=== PATIENT | male | born 1950 | race Caucasian/White ===

== ENCOUNTER 2020-02-23 03:08 | Outpatient (CLI) | payer MEDICARE, SELFPAY ==
[2020-02-23 18:16] LABS: SARS-CoV-2 RNA PCR Negative
== END 2020-02-23 03:09 | disposition home or self-care (01) ==
LOC: ANHCOVIDDT 03:08
PROVIDERS: PCP Internal Medicine; Visit Provider Internal Medicine Gastroenterology
DX: Z01.812 Encounter for preprocedural laboratory examination (principal); Z20.828 Contact with and (suspected) exposure to other viral communicable diseases
CPT/HCPCS: 87635; C9803; U0003

== ENCOUNTER 2020-02-25 00:14 | Day surgery (SDC) | payer MEDICARE, SELFPAY ==
[2020-02-18 14:04] VITALS: BMI 36.8
[2020-02-25 06:51] VITALS: BP 150/79; PULSE 81; RESP 18; TEMP 36.9; O2SAT 98; BMI 36.2
[2020-02-25] MEDS: LACTATED RINGERS 1,000 ML 150 ML IV CONT (07:01)
[2020-02-25 07:07] LABS: Glucose Point of Care 106 (65-105)
--- NOTE | 2020-02-25 07:27 | WPDANESEPPF ---
Anes - Initial Pre Proc Eval Procedure: Operation Date: 02/25/20 08:00 Proposed Procedures p Colonoscopy - Jorge Alberto Hui MD Date/Time: 02/25/20 07:27 Surgeon: Jorge Alberto Hui MD Pre Op Diagnosis: Occult GI Bleed Patient Data Age: 69 Gender: M Height: 5 ft 11 in Weight: 117.8 kg Last Vital Signs Temp 98.4 F 02/25/20 06:51 Pulse 81 02/25/20 06:51 Resp 18 02/25/20 06:51 BP 150/79 H 02/25/20 06:51 Pulse Ox 98 02/25/20 06:51 Allergies Allergy/AdvReac Type Severity Reaction Status Date / Time No Known Allergies Allergy Verified 02/25/20 06:50 Home Medications Medication Instructions Recorded Confirmed Type insulin detemir U-100 100 unit/mL 40 unit SUB-Q DAILY #90 ml 06/24/19 02/18/20 Rx (3 mL) subcutaneous pen exenatide microspheres 2 mg/0.65 2 mg SUB-Q WEEKLY #4 each 07/09/19 02/18/20 Rx mL subcutaneous pen injector insulin aspart U-100 100 unit/mL 16 unit SUB-Q QACLUNCH #45 ml 08/21/19 02/18/20 Rx (3 mL) subcutaneous pen amlodipine 10 mg tablet 10 mg PO DAILY #90 tablet 08/25/19 02/18/20 Rx atorvastatin 20 mg tablet 20 mg PO DAILY #90 tablet 12/07/19 02/18/20 Rx carvedilol 25 mg tablet 25 mg PO BID #60 tablet 02/10/20 02/18/20 Rx allopurinol 100 mg PO DAILY 02/18/20 02/18/20 History aspirin [Aspirin Low Dose] 81 mg PO DAILY 02/18/20 02/18/20 History calcitriol 0.25 mcg PO 3XW 02/18/20 02/18/20 History bumetanide 2 mg tablet 2 mg PO DAILY #90 tablet 02/19/20 Rx Laboratory Tests 02/25/20 07:05 POC Capillary Glucose 106 mg/dl mg/dl (65-105) Patient hx anesthesia problems: none Family hx anesthesia problems: none PMFSH Past Medical History Medical History (Updated 02/25/20 @ 07:27 by Alirio Jones MD) Hypertensive heart disease with congestive heart failure and chronic kidney disease Mixed hyperlipidemia 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, with long-term current use of insulin Family History Family History (Updated 11/13/12 @ 11:52 by DOCTOR UNKNOWN) Other Diabetes mellitus Family history of coronary artery disease Social History Social History Smoking status: Never smoker Second hand tobacco smoke exposure: No Alcohol intake: current Drinks per week: 5 Substance use type: does not use Living arrangements: alone Gender identity (if verbalized by the patient): Male Sexual Orientation (if Verbalized by the Patient): Straight or Heterosexual Spiritual care concerns: No Anes - Eval Final PreProcedure Day of Procedure 02/25/20 07:27 Patient weight: obese Heart: regular rate and rhythm Lungs: clear to auscultation Airway: Mallampati scale class III Neurological: alert and oriented Last oral intake: >/= 8 hours ASA classification: III Emergent: no Anesthetic plan: proceed Anesthesia type and monitoring: general GIVS and standard monitoring Informed Consent: The patient's anesthetic plan and its attendant risks and benefits were discussed with the patient/family/POA. Questions were solicited and answers provided to the satisfaction of the patient/family/POA.
--- NOTE | 2020-02-25 07:43 | WPDGICN ---
Assessment and Plan Assessment and plan (1) Occult blood in stools: Code(s): R19.5 - Other fecal abnormalities Status: Acute Assessment and Plan: Occult blood identified in patient's bowel movement. Plan is to evaluate more thoroughly with colonoscopy period is been 18 years since his last exam. High-fiber diet is advised in the interim. GI Consult Note Consult date/time: 02/25/20 07:43 HPI: Matteo Fletcher is a 69 year old male Seen in evaluation at the request of Dr José Miguel Shepard. patient was found to have Hemoccult-positive stools. He denies any obvious blood in his stools. His current weight appetite bowel movements are normal. He denies abdominal pain. His weight has remained stable. He has had no visible blood noted in his stool. Patient reports a prior colonoscopy about 18 years ago. Apparently this was unremarkable. Family history is noncontributory. 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, with long-term current use of insulin Family History Family History (Updated 11/13/12 @ 11:52 by DOCTOR UNKNOWN) Other Diabetes mellitus Family history of coronary artery disease Social History Social History Smoking status: Never smoker Second hand tobacco smoke exposure: No Alcohol intake: current Drinks per week: 5 Substance use type: does not use Living arrangements: alone Gender identity (if verbalized by the patient): Male Sexual Orientation (if Verbalized by the Patient): Straight or Heterosexual Spiritual care concerns: No Meds Home Medications and Allergies Home Medications Medication Instructions Recorded Confirmed Type insulin detemir U-100 100 unit/mL 40 unit SUB-Q DAILY #90 ml 06/24/19 02/18/20 Rx (3 mL) subcutaneous pen exenatide microspheres 2 mg/0.65 2 mg SUB-Q WEEKLY #4 each 07/09/19 02/18/20 Rx mL subcutaneous pen injector insulin aspart U-100 100 unit/mL 16 unit SUB-Q QACLUNCH #45 ml 08/21/19 02/18/20 Rx (3 mL) subcutaneous pen amlodipine 10 mg tablet 10 mg PO DAILY #90 tablet 08/25/19 02/18/20 Rx atorvastatin 20 mg tablet 20 mg PO DAILY #90 tablet 12/07/19 02/18/20 Rx carvedilol 25 mg tablet 25 mg PO BID #60 tablet 02/10/20 02/18/20 Rx allopurinol 100 mg PO DAILY 02/18/20 02/18/20 History aspirin [Aspirin Low Dose] 81 mg PO DAILY 02/18/20 02/18/20 History calcitriol 0.25 mcg PO 3XW 02/18/20 02/18/20 History bumetanide 2 mg tablet 2 mg PO DAILY #90 tablet 02/19/20 Rx Allergies Allergy/AdvReac Type Severity Reaction Status Date / Time No Known Allergies Allergy Verified 02/25/20 06:50 Vital Signs Vital Signs - 24 hr 02/25/20 06:51 Temperature 98.4 F Pulse Rate 81 Respiratory Rate 18 Blood Pressure 150/79 H Pulse Oximetry 98 Exam Narrative: Exam Narrative: Physical exam reveals patient to be alert. Vital signs stable. HEENT exam unremarkable. He is anicteric. Lungs are clear to auscultation and percussion. Heart is without murmur or extra sounds. Abdominal exam is somewhat obese. Bowel sounds are present soft nontender with no organomegaly. Digital external rectal exam is normal.
[2020-02-25] MEDS: SIMETHICONE ORAL SUSPENSION 20 MG/0.3 ML 30 ML BOTTLE 0.6 ML IRRIGATION (08:04)
[2020-02-25 08:11] VITALS: BP 125/76; PULSE 73; RESP 33; O2SAT 98
[2020-02-25 08:21] VITALS: BP 135/83; PULSE 78; RESP 21; O2SAT 97
[2020-02-25 08:24] LABS: Glucose Point of Care 101 (65-105)
[2020-02-25 08:31] VITALS: BP 138/75; PULSE 73; RESP 18; O2SAT 99
== END 2020-02-25 08:45 | disposition home or self-care (01) ==
PROVIDERS: PCP Internal Medicine; Visit Provider Internal Medicine Gastroenterology
PROC: 0DJD8ZZ Inspection of Lower Intestinal Tract, Via Natural or Artificial Opening Endoscopic (ICD-10-PCS; CPT 45378; principal; 2020-02-25 08:00)
DX: Z12.11 Encounter for screening for malignant neoplasm of colon (principal); K92.1 Melena; D12.5 Benign neoplasm of sigmoid colon; K64.8 Other hemorrhoids; I13.0 Hypertensive heart and chronic kidney disease with heart failure and stage 1 through stage 4 chronic kidney disease, or unspecified chronic kidney disease; N18.9 Chronic kidney disease, unspecified; I50.9 Heart failure, unspecified; E78.5 Hyperlipidemia, unspecified; E11.40 Type 2 diabetes mellitus with diabetic neuropathy, unspecified; Z79.4 Long term (current) use of insulin; E66.9 Obesity, unspecified; Z68.36 Body mass index [BMI] 36.0-36.9, adult
CPT/HCPCS: 45385; 88305; J2704; J7120